=== PATIENT | male | born 1990 | race Caucasian/White ===

== ENCOUNTER 2017-06-21 11:16 | Emergency (ER) | payer SELFPAY ==
[2017-06-21 11:30] VITALS: BP 147/97
[2017-06-21] MEDS ORDERED: Tetracaine 0.5% OPTH.SOL 4 ML* 1 DROP BTL LEFT EYE ONE (11:33)
[2017-06-21] MEDS ORDERED: Fluorescein Sodium TOPICAL* 1 MG TEST OPHTHALMIC ONE (11:34)
--- NOTE | 2017-06-21 12:03 | UC ---
Eye Complaint HPI - HPI Summary HPI Summary: 26 yo male with fb sensation left eye x 1 hour ? sawdust hurts when he blinks - History of Current Complaint Chief Complaint: UCEye Stated Complaint: FB IN EYE Time Seen by Provider: 06/21/17 11:33 Hx Obtained From: Patient Onset/Duration: Sudden Onset Timing: Constant Severity Initially: Moderate Severity Currently: Moderate Pain Intensity: 7 Pain Scale Used: 0-10 Numeric Location of Injury: Eye Lid (upper) - ? Character: Foreign Body Sensation Aggravating Factor(s): Blinking Alleviating Factor(s): Nothing Associated Signs And Symptoms: Positive: Photophobia, Drainage (Clear) - Allergies/Home Medications Allergies/Adverse Reactions: Allergies Allergy/AdvReac Type Severity Reaction Status Date / Time No Known Allergies Allergy Verified 10/31/14 11:16 Home Medications: Home Medications NK [No Home Medications Reported] 06/21/17 [History Confirmed 06/21/17] PMH/Surg Hx/FS Hx/Imm Hx Previously Healthy: Yes - Surgical History Surgical History: None - Family History Known Family History: Positive: Unknown - HE IS ADOPTED - Social History Alcohol Use: Occasionally Alcohol Amount: couple beers a night Substance Use Type: None Smoking Status (MU): Heavy Every Day Tobacco Smoker Type: Cigarettes Amount Used/How Often: 1/2 ppd - Immunization History Most Recent Tetanus Shot: does not recall Review of Systems Constitutional: Negative Skin: Negative Eyes: Eye Redness ENT: Negative Respiratory: Negative Cardiovascular: Negative Gastrointestinal: Negative Genitourinary: Negative Motor: Negative Neurovascular: Negative Musculoskeletal: Negative Neurological: Negative Psychological: Negative Is Patient Immunocompromised?: No All Other Systems Reviewed And Are Negative: Yes Physical Exam Triage Information Reviewed: Yes Appearance: Well-Appearing, No Pain Distress, Well-Nourished Vital Signs: Initial Vital Signs Temp 98.8 F 06/21/17 11:22 Pulse 91 06/21/17 11:22 Resp 18 06/21/17 11:22 BP 147/97 06/21/17 11:22 Pulse Ox 100 06/21/17 11:22 Eyes: Positive: Conjunctiva Inflamed, Other: - no FB noted with lid eversion/ neg fluorescein staining defect, EOMI/PERRL ENT: Positive: Hearing grossly normal. Negative: Nasal congestion, Nasal drainage, Tonsillar exudate, Trismus, Muffled/hoarse voice Neck: Positive: Supple, Nontender, No Lymphadenopathy Respiratory: Positive: Lungs clear, Normal breath sounds, No respiratory distress, No accessory muscle use Cardiovascular: Positive: RRR, No Murmur Musculoskeletal: Positive: ROM Intact, No Edema Neurological: Positive: Alert Psychological Exam: Normal Skin Exam: Normal Re-Evaluation - Re-Evaluation First Eval Re-Evaluation Time: 12:35 Change: Improved - much better/still mildly irritated Eye Complaint Course/Dx - Differential Dx/Diagnosis Provider Diagnoses: left eye discomfort of uncertain cause Discharge - Discharge Plan Condition: Stable Disposition: HOME Patient Education Materials: Eye Pain (ED) Forms: *Work Release Referrals: [facility] [Outside] - As Soon As Possible (your bp here was elevated it should be followed) Rahul Kumar MD [Medical Doctor] - 1 Day Additional Instructions: cool compresses ZADITOR eye drops (OTC) recheck today if symptoms worsen you need to see an talent management specialist tomorrow if not completely better
== END 2017-06-21 12:48 | disposition home or self-care (01) ==
LOC: UCEAST 11:16
DX: H57.12 Ocular pain, left eye (principal); F17.210 Nicotine dependence, cigarettes, uncomplicated
CPT/HCPCS: 99212; A9270-GY; G0463

== ENCOUNTER 2018-05-13 11:20 | Emergency (ER) | payer OTHER ==
[2018-05-13 12:45] VITALS: BP 129/73
--- NOTE | 2018-05-13 13:32 | UC ---
Rectal Pain HPI - HPI Summary HPI Summary: 27-year-old male presents with bright red blood per rectum. States he has been having intermittent episodes over the past year. Had another episode again this morning. Noted is small amount of bright red blood on the stool and in the toilet as well as on the toilet paper when he wiped. He has been evaluated for this in the past and told that it was related to hemorrhoids although he declined a rectal exam at that time. Denies fever, chills, dizziness or faintness, chest pain, shortness of breath, abdominal pain, nausea, vomiting, diarrhea, constipation, pain with defecation, or anal itching. States has daily bowel movements of normal color and consistency. Does not feel like he strains with defecation. - History Of Current Complaint Chief Complaint: UCGI Stated Complaint: BLOOD IN STOOL Time Seen by Provider: 05/13/18 13:02 Hx Obtained From: Patient Onset/Duration: Other - See history of present illness Severity Currently: None Pain Intensity: 0 Location Of Pain: (No Pain) Aggravating Factor(s): Bowel Movement Alleviating Factor(s): Nothing Associated Signs And Symptoms: Positive: Rectal Bleeding, Bright Red Blood w/ Stool. Negative: Black Tarry Stool, Diarrhea, Constipation, Discharge Related History: Similar Episode/Dx As - Hemorrhoid - Allergies/Home Medications Allergies/Adverse Reactions: Allergies Allergy/AdvReac Type Severity Reaction Status Date / Time No Known Allergies Allergy Verified 10/31/14 11:16 PMH/Surg Hx/FS Hx/Imm Hx - Additional Past Medical History Additional PMH: Denies significant past medical history - Surgical History Surgical History: None - Family History Known Family History: Positive: Unknown - HE IS ADOPTED - Social History Occupation: Employed Full-time Lives: With Family Alcohol Use: Rare Alcohol Amount: couple beers a night Substance Use Type: None Smoking Status (MU): Former Smoker Type: Cigarettes Amount Used/How Often: 1/2 ppd - Immunization History Most Recent Tetanus Shot: does not recall Review of Systems Constitutional: Negative Skin: Negative Respiratory: Negative Cardiovascular: Negative Gastrointestinal: Negative Is Patient Immunocompromised?: No All Other Systems Reviewed And Are Negative: Yes Physical Exam Triage Information Reviewed: Yes Appearance: Well-Appearing, No Pain Distress, Well-Nourished Vital Signs: Initial Vital Signs Temp 97.3 F 09/17/18 12:40 Pulse 91 05/13/18 12:40 Resp 17 05/13/18 12:40 BP 129/73 05/13/18 12:40 Pulse Ox 99 05/13/18 12:40 Respiratory: Positive: Lungs clear, Normal breath sounds, No respiratory distress Cardiovascular: Positive: RRR, No Murmur, Pulses Normal, Brisk Capillary Refill Abdomen Description: Positive: Nontender, No Organomegaly, Soft. Negative: Distended, Guarding Bowel Sounds: Positive: Present Male Genital Exam: Positive: Other - Digital rectal exam revealed small internal hemorrhoid. No stool or blood noted in the rectal vault. Neurological: Positive: Alert Skin Exam: Normal Rectal Pain Course/Dx - Course Course Of Treatment: 27 year old male with intermittent episodes of painless bright red blood per rectum for past year. Most recent episode today. VSS. Exam unremarkable except for a small internal hemorrhoid noted on rectal exam. Recommend high fiber diet, push fluids, and OTC hemorrhoidal cream. He is to establish with a PCP and follow up should symptoms persist. - Differential Dx/Diagnosis Differential Diagnosis/HQI/PQRI: Hemorrhoid(s), Rectal Fissure Provider Diagnoses: internal hemorrhoid Discharge - Sign-Out/Discharge Documenting (check all that apply): Patient Departure All imaging exams completed and their final reports reviewed: No Studies - Discharge Plan Condition: Stable Disposition: HOME Patient Education Materials: Hemorrhoids (ED) Referrals: No Primary Care Phys,NOPCP [Primary Care Provider] - [facility] [Outside] - As Soon As Possible (Call if you need assistance with establishing with a primary care provider.) Additional Instructions: You were noted to have a small internal hemorrhoid on exam. This is likely the cause of your bleeding. Using [id number]-[id number] hemorrhoid ointment such as Preparation H according to directions. Eat foods high in fiber or use an ozuc-xks-[id number] fiber supplement such as Metamucil or Citrucel and be sure to drink plenty of fluids in order to keep your stool soft. I recommend establishing with a primary care provider. I have given you the number for the [facility] Referral service if you need assistance with establishing care. This will be very important especially if your symptoms persist as you may need further evaluation. Seek immediate medical attention in the emergency room if you have severe abdominal pain, pain with bowel movements, worsening bleeding, dark black tarry stools, or any worsening of symptoms. - Billing Disposition and Condition Condition: STABLE Disposition: Home
== END 2018-05-13 13:40 | disposition home or self-care (01) ==
LOC: UCCORT 11:20
DX: K64.8 Other hemorrhoids (principal); Z87.891 Personal history of nicotine dependence
CPT/HCPCS: 99211; G0463

== ENCOUNTER 2018-09-16 16:20 | Emergency (ER) | payer OTHER ==
[2018-09-16 16:28] VITALS: BP 145/86
--- NOTE | 2018-09-16 16:46 | UC ---
Back Pain HPI - HPI Summary HPI Summary: Pt presents to urgent patient presents to urgent care with significant other. Patient states since 10:30 this morning he's had frequent episodes of right sided flank pain. Patient states pain lasts 5-10 seconds but has progressively become more intense. Patient states when the pain happens he is unable to get comfortable. No nausea vomiting. Patient denies any dysuria or hematuria. Patient without pain in his rectum testicles. Patient states he is not taking anything for pain is never had anything like this before. Patient is any paresthesias. Patient states does not feel like a muscle strain. Patient denies any trauma or new injury. Patient medications reviewed this visit. Patient does smoke marijuana earlier today but that did not help the pain either patient here because of increased frequency as well as intensity. No personal history of kidney stones. Patient does not know family history - History of Current Complaint Chief Complaint: UCBackPain Stated Complaint: BACK PAIN Time Seen by Provider: 09/16/18 16:31 Hx Obtained From: Patient, Family/Engineering Test Specialist Severity Initially: Moderate Severity Currently: Moderate Pain Intensity: 7 Pain Scale Used: 0-10 Numeric Back Pain: Is Discrete @ - right paraspinal prox lumbar Character: Sharp Aggravating Factor(s): Nothing Alleviating Factor(s): Nothing Associated Signs And Symptoms: Positive: Flank Pain. Negative: Abdominal Pain - Allergies/Home Medications Allergies/Adverse Reactions: Allergies Allergy/AdvReac Type Severity Reaction Status Date / Time No Known Allergies Allergy Verified 09/16/18 16:28 PMH/Surg Hx/FS Hx/Imm Hx Previously Healthy: Yes - Surgical History Surgical History: None Surgery Procedure, Year, and Place: denies - Family History Known Family History: Positive: Unknown - HE IS ADOPTED - Social History Occupation: Employed Full-time - construction Lives: With Family Alcohol Use: Occasionally Alcohol Amount: couple beers a night Substance Use Type: None Smoking Status (MU): Former Smoker Type: Cigarettes Amount Used/How Often: 1/2 ppd Have You Smoked in the Last Year: Yes - vape - Immunization History Most Recent Tetanus Shot: does not recall Review of Systems All Other Systems Reviewed And Are Negative: Yes Constitutional: Positive: Negative Skin: Positive: Negative Eyes: Positive: Negative ENT: Positive: Negative Respiratory: Positive: Negative Cardiovascular: Positive: Negative Gastrointestinal: Positive: Negative Genitourinary: Positive: Negative Motor: Positive: Other - right back Is Patient Immunocompromised?: No Physical Exam - Summary Physical Exam Summary: Vital Signs Reviewed: Yes A+Ox3, intermittent episode of discomfort Eyes: Conjunctiva Clear, MARIANNE. EOM intact and full ENT: Hearing grossly normal TM x 2 clear, mmoist, uvula midline, no exudate, no erythema Neck: Positive: Supple Respiratory: Positive: No respiratory distress, No accessory muscle use + CTA throughout no w/r Cardiovascular: RRR nl s1, s2 no m/r CBT <2 sec abd soft + BS nt/nd no guarding, no distension no CVA Musculoskeletal Exam: No spinous process pain. No pain with palpaption of spinous process. Unable to recreate pain. MCKOY x 4 without difficulty Strength Intact, ROM Intact Neurological: Positive: Alert, + sensation throughout Psychological: Positive: Normal Response To Family Skin: Positive: no rash, no ecchymosis Triage Information Reviewed: Yes Vital Signs: Initial Vital Signs Temp 98.6 F 09/16/18 16:24 Pulse 90 09/16/18 16:24 Resp 18 09/16/18 16:24 BP 145/86 09/16/18 16:24 Pulse Ox 99 09/16/18 16:24 Diagnostics - Radiology No standard instances Radiology Interpretation Completed By: Radiologist - Patient Name: LAKHWINDER NORTON Medical Record#: [id number] Ordering Physician: Lindsay Burgess MD Acct.#: [id number] : 1990 Age: 28 Sex: M Location: [place] Exam Date: 09/16/18 1700 ADM Status: [facility] Order Information: CT ABD/PEL W/ O Accession Number: [id number] CPT: 62402 CLINICAL HISTORY: right flank pain COMPARISON: None TECHNIQUE: Multiple contiguous axial CT scans were obtained of the abdomen and pelvis, without intravenous contrast enhancement. Coronal and sagittal multiplanar reformations are submitted for review. Oral contrast was not administered. FINDINGS: Evaluation is limited due to the lack of intravenous contrast. This limits evaluation of the solid organs and vasculature. LUNG BASES: The lung bases are clear. LIVER: The liver is normal in shape, size, contour, and attenuation. BILE DUCTS: There is no intrahepatic or extrahepatic biliary dilatation. GALLBLADDER: The gallbladder is normal, without pericholecystic inflammatory change. PANCREAS: The pancreas is normal, without mass or ductal dilatation. SPLEEN: Normal in size and appearance. UPPER GI TRACT: Evaluation of the gastrointestinal tract is limited by incomplete gastric distention. The upper GI tract is unremarkable. SMALL BOWEL AND MESENTERY: The small bowel is normal in contour, course, and caliber. There is no obstruction or dilatation. COLON: The colon is normal in contour, course, caliber. There is no pericolonic inflammatory change. There is a tubular, vermiform, hollow viscus that is blind ending, and originates from the cecum, consistent with a normal appendix. There is no periappendiceal inflammatory change. This is best seen on series 603.2 on axial images 142 through 163. ADRENALS: Normal bilaterally. KIDNEYS: The kidneys are normal in shape, size, contour, and axis. There is no hydronephrosis or nephrolithiasis. BLADDER: The bladder is smooth in contour. PELVIC ORGANS: The prostate gland is normal. The seminal vesicles are symmetric. AORTA: The aorta is normal. IVC: Unremarkable LYMPH NODES: There is no lymphadenopathy by size criteria. ABDOMINAL WALL: There is no evidence for abdominal wall hernia. BONES AND SOFT TISSUES: Unremarkable OTHER: None IMPRESSION: NO HYDRONEPHROSIS OR NEPHROLITHIASIS. NORMAL APPENDIX This report is only to be considered final once signed by the Provider(s) as displayed in the "<Electronically Signed by >" field (s). Absence of a signature indicates the report is in a draft status and still needs to be finalized. In the event this document was created by someone other than the signing Provider, the individual initiating the document will be listed in the "Entered by:" or "Dictated by:" adkins. 1 of 2 Re-Evaluation - Re-Evaluation First Eval Comment: reviewed CT with pt. motrin / APAP. heat. stretch. pt to call PCP for f/u or ED if worse. States agreement with plan. work note Back Pain Course/Dx - Course Course Of Treatment: Patient presents to urgent care with intermittent episodes of right back pain since 10:30 this morning. Patient states there is nothing that seemed to trigger them. Pain is increasing in intensity as well as duration although each episode was less than 10 seconds. Patient is a nausea vomiting. Patient unable to couple during episodes. No analgesia taken. No trauma. No medications taken patient's urine was normal. Discussed with patient differential including renal colic, muscle spasm, gallbladder. d/w pt noncontrast CT vs analgesia, heat stretch with close follow-up. After discussion will proceed with non contrast pt aware of noncontrast limitation. Will give Motrin - Differential Dx/Diagnosis Provider Diagnosis: Flank pain, Back pain Discharge - Sign-Out/Discharge Documenting (check all that apply): Patient Departure All imaging exams completed and their final reports reviewed: Yes - Discharge Plan Condition: Stable Disposition: HOME Patient Education Materials: Flank Pain (ED), Back Pain (ED) Forms: *Work Release Referrals: No Primary Care Phys,NOPCP [Primary Care Provider] - Additional Instructions: As discussed with you jarodight, your CT scan does not show the cause of your pain. There is no evidence or kidney stones and your appendix appears normal. It is very important you monitor your symptoms closely - if you develop increased or uncontrolled pain, vomiting, fevers, rash or ANY other concerns it is recommended you go to the emergency department for further evaluation and treatment It is recommended you alternate ibuprofen (Advil, Motrin) and tylenol every 3 hours for pain. Take with food. do NOt take for more than 4-5 days Apply moist heat to the area Contact your doctor or go to the ED for follow-up. - Billing Disposition and Condition Condition: STABLE Disposition: Home
[2018-09-16] MEDS ORDERED: Ibuprofen TAB* 600 MG PO ONE (17:01)
== END 2018-09-16 17:45 | disposition home or self-care (01) ==
LOC: UCEAST 16:20
DX: M54.5 Low back pain (principal); Z87.891 Personal history of nicotine dependence
CPT/HCPCS: 74176; 81003; 99212; A9270-GY; G0463

== ENCOUNTER 2019-05-15 20:12 | Emergency (ER) | payer OTHER ==
[2019-05-15 21:06] VITALS: BP 130/87
--- NOTE | 2019-05-15 21:13 | UC ---
Hand/Wrist HPI - HPI Summary HPI Summary: 28-year-old male who was using a shovel to do some work on his driveway when he jammed the shovel into concrete which causes pain in his left wrist. This happened 2 days ago. - History Of Current Complaint Chief Complaint: UCUpperExtremity Stated Complaint: WRIST INJURY Time Seen by Provider: 05/15/19 20:20 Hx Obtained From: Patient ?: No Onset/Duration: Sudden Onset Severity Initially: Mild Severity Currently: Mild Pain Intensity: 2 Character Of Pain: Dull, Aching Aggravating Factor(s): Movement Alleviating Factor(s): Nothing Associated Signs And Symptoms: Positive: Swelling - Allergies/Home Medications Allergies/Adverse Reactions: Allergies Allergy/AdvReac Type Severity Reaction Status Date / Time No Known Allergies Allergy Verified 05/15/19 21:07 PMH/Surg Hx/FS Hx/Imm Hx Previously Healthy: Yes - Surgical History Surgical History: None Surgery Procedure, Year, and Place: denies - Family History Known Family History: Positive: Unknown - HE IS ADOPTED - Social History Alcohol Use: Occasionally Alcohol Amount: couple beers a month Substance Use Type: Marijuana Substance Use Comment - Amount & Last Used: daily Smoking Status (MU): Former Smoker Type: eCigarettes Amount Used/How Often: 1/2 ppd Have You Smoked in the Last Year: Yes - vape - Immunization History Most Recent Tetanus Shot: does not recall Review of Systems All Other Systems Reviewed And Are Negative: Yes Musculoskeletal: Positive: Other: - Mild swelling to the left wrist. Is Patient Immunocompromised?: No Physical Exam Triage Information Reviewed: Yes Appearance: Well-Appearing, No Pain Distress, Well-Nourished Vital Signs: Initial Vital Signs Temp 98.0 F 05/15/19 21:02 Pulse 93 05/15/19 21:02 Resp 16 05/15/19 21:02 BP 130/87 05/15/19 21:02 Pulse Ox 100 05/15/19 21:02 Vital Signs Reviewed: Yes Musculoskeletal: Positive: Strength Intact, ROM Intact - Good finger strength with flexion extension against resistance, good peripheral pulses neuro sensation capillary refill, scaphoid is nontender. Patient has mild swelling to the left wrist area. No deformity is noted., Other: - Good elbow stability. Neurological: Positive: Alert, Muscle Tone Normal Psychological Exam: Normal Skin: Positive: Other - Mild swelling over the left wrist. Hand/Wrist Course/Dx - Course Course Of Treatment: Left wrist x-ray: negative as read by myself A cockup wrist splint is applied. No work until Sunday. Patient's follow-up with the orthopedist if no improvement by Sunday. - Differential Dx/Diagnosis Provider Diagnosis: Left wrist sprain Discharge ED - Sign-Out/Discharge Documenting (check all that apply): Patient Departure All imaging exams completed and their final reports reviewed: No - Discharge Plan Condition: Good Disposition: HOME Patient Education Materials: Wrist Sprain (ED) Forms: *Work Release Referrals: No Primary Care Phys,NOPCP [Primary Care Provider] - Tiffany Dent MD [Medical Doctor] - Additional Instructions: Elevate as much as possible, apply ice to the sore area intermittently throughout the next day or 2. Wear the wrist splint as needed for comfort. Definite follow-up with the orthopedist on Sunday if continued pain. - Billing Disposition and Condition Condition: GOOD Disposition: Home - Attestation Statements Provider Attestation: I was available for consult. This patient was seen by the MATTHEW. The patient was not presented to, seen by, or examined by me. -Xochilt
--- NOTE | 2019-05-16 08:48 | UC ---
- Progress Note Progress Note: Patient Name: LAKHWINDER NORTON Medical Record#: [id number] Ordering Physician: Jacquelyn Dan NP Acct.#: [id number] : 1990 Age: 28 Sex: M Location: [facility] Exam Date: 05/15/192109 ADM Status: [facility] Order Information: WRIST LEFT 3+ VWS Accession Number: [id number] CPT: 98808 INDICATION: Left wrist injury. TECHNIQUE: 4 views of the left wrist were obtained. FINDINGS: The bones are in normal alignment. No fracture is seen. Joint spaces appear maintained. IMPRESSION: NO EVIDENCE FOR FRACTURE. IF THE PATIENT'S SYMPTOMS PERSIST RECOMMEND FOLLOW-UP IMAGING. R0 Preliminary Imaging Read R0 <Electronically signed by Mohan Rashid MD in [place]> 05/16/19731 Dictated By: Mohan Rashid MD Dictated Date/Time: 05/16/19730 Transcribed Date/Time: 05/16/19730 Copy to: CC:Jacquelyn Dan NP; Lindsay Burgess MD; No Primary Care Phys,NOPCP Imaging - [facility] Imaging - [facility] Imaging - [facility] [address] [address] ph ([phone]) ph ([phone]) ph ([phone]) This report is only to be considered final once signed by the Provider(s) as displayed in the "<Electronically Signed by >" field (s). Absence of a signature indicates the report is in a draft status and still needs to be finalized. In the event this document was created by someone other than the signing Provider, the individual initiating the document will be listed in the "Entered by:" or "Dictated by:" adkins. 1 of 1 Course/Dx - Diagnoses Provider Diagnoses: Left wrist sprain Discharge ED - Sign-Out/Discharge Documenting (check all that apply): Post-Discharge Follow Up All imaging exams completed and their final reports reviewed: Yes - Discharge Plan Condition: Good Disposition: HOME Patient Education Materials: Wrist Sprain (ED) Forms: *Work Release Referrals: Tiffany Dent MD [Medical Doctor] - No Primary Care Phys,NOPCP [Primary Care Provider] - Additional Instructions: Elevate as much as possible, apply ice to the sore area intermittently throughout the next day or 2. Wear the wrist splint as needed for comfort. Definite follow-up with the orthopedist on Sunday if continued pain. - Billing Disposition and Condition Condition: GOOD Disposition: Home
== END 2019-05-15 21:47 | disposition home or self-care (01) ==
LOC: UCEAST 20:12
DX: S63.502A Unspecified sprain of left wrist, initial encounter (principal); X50.0XXA Overexertion from strenuous movement or load, initial encounter; Y93.H1 Activity, digging, shoveling and raking; Y92.017 Garden or yard in single-family (private) house as the place of occurrence of the external cause; Y99.8 Other external cause status; Z87.891 Personal history of nicotine dependence
CPT/HCPCS: 99212; G0463

== ENCOUNTER 2019-09-01 07:21 | Emergency (ER) | payer OTHER ==
--- NOTE | 2019-09-01 07:43 | UC ---
Abdominal Pain Male HPI - HPI Summary HPI Summary: The patient is a 29-year-old male that has had a four-day history of diarrhea. He states he has over 20 episodes of diarrhea day. He has been tolerating liquids. Any attempts to eat solids result in vomiting. He has had about one episode of vomiting a day. He denies any fever or chills. He denies any abdominal pain. He is starting to feel little dizzy and lightheaded when he stands. He has had no blood in his diarrhea. He denies any recent antibiotic use. He denies any recent travel or camping. No one else at home is ill with similar symptoms. He denies any myalgias or headache. - History of Current Complaint Chief Complaint: UCGeneralIllness Stated Complaint: VOMITING Time Seen by Provider: 09/01/19 07:42 Hx Obtained From: Patient Onset/Duration: Gradual Onset, Lasting Days Timing: Constant Severity Initially: Moderate Severity Currently: Moderate Pain Intensity: 1 Pain Scale Used: 0-10 Numeric Location: Diffuse Character: Cramping Aggravating Factor(s): Food Alleviating Factor(s): Nothing Associated Signs And Symptoms: Positive: Dizzy, Vomiting - only if he attempts to eat, Diarrhea - ++++. Negative: Diaphoresis, Fever, Cough, Chest Pain, Back Pain, Constipation, Blood in Stool, Urinary Symptoms, Decreased Appetite, Nausea - Allergies/Home Medications Allergies/Adverse Reactions: Allergies Allergy/AdvReac Type Severity Reaction Status Date / Time No Known Allergies Allergy Verified 05/15/19 21:07 PMH/Surg Hx/FS Hx/Imm Hx Previously Healthy: Yes - Surgical History Surgical History: None Surgery Procedure, Year, and Place: denies - Family History Known Family History: Positive: Unknown - HE IS ADOPTED - Social History Alcohol Use: Rare Alcohol Amount: couple beers a month Substance Use Type: Marijuana Substance Use Comment - Amount & Last Used: daily Smoking Status (MU): Former Smoker Type: eCigarettes Amount Used/How Often: 1/2 ppd Have You Smoked in the Last Year: Yes - vape - Immunization History Most Recent Tetanus Shot: does not recall Review of Systems All Other Systems Reviewed And Are Negative: Yes Constitutional: Positive: Negative Skin: Positive: Negative Eyes: Positive: Negative ENT: Positive: Negative, Dental Pain Respiratory: Positive: Negative Cardiovascular: Positive: Negative Gastrointestinal: Positive: Vomiting, Diarrhea Genitourinary: Positive: Negative Motor: Positive: Negative Neurovascular: Positive: Negative Musculoskeletal: Positive: Negative Neurological: Positive: Negative Psychological: Positive: Negative Physical Exam Triage Information Reviewed: Yes Appearance: Well-Appearing, No Pain Distress, Well-Nourished Vital Signs: Initial Vital Signs Temp 97.8 F 09/01/19 07:32 Pulse 102 09/01/19 07:32 Resp 18 09/01/19 07:32 BP 135/87 09/01/19 07:32 Pulse Ox 97 09/01/19 07:32 Vital Signs Reviewed: Yes Eyes: Positive: Conjunctiva Clear ENT: Positive: Hearing grossly normal, Uvula midline, Other - dry lips /moist intraoral mm. Negative: Nasal congestion, Nasal drainage, Tonsillar swelling, Tonsillar exudate, Trismus, Muffled voice, Hoarse voice Neck: Positive: Supple, Nontender Respiratory: Positive: Lungs clear, Normal breath sounds, No respiratory distress Cardiovascular: Positive: RRR, No Murmur Abdomen Description: Positive: Nontender, No Organomegaly, Soft. Negative: CVA Tenderness (R), CVA Tenderness (L) Bowel Sounds: Positive: Present, Hyperactive Musculoskeletal: Positive: ROM Intact, No Edema Neurological: Positive: Alert Psychological Exam: Normal Skin Exam: Normal Re-Evaluation - Re-Evaluation First Eval Re-Evaluation Time: 09:05 Change: Improved Comment: improved after one liter of fluids/no dizziness/ambulating without difficulty. No longer tachycardic Abd Pain Male Course/Dx - Differential Dx/Clinical Impression Provider Diagnosis: Acute diarrhea Discharge ED - Sign-Out/Discharge Documenting (check all that apply): Patient Departure All imaging exams completed and their final reports reviewed: No Studies - Discharge Plan Condition: Stable Disposition: HOME Prescriptions: Promethazine 25 mg TAB [Phenergan 25 mg TAB] 25 mg PO Q6H PRN #12 tab PRN Reason: Nausea Patient Education Materials: Acute Diarrhea (ED), Nutrition Tips for Relief of Diarrhea (ED) Referrals: [facility] [place] [facility] [Outside] Additional Instructions: bring in stool for studies recheck for worsening symptoms - Billing Disposition and Condition Condition: STABLE Disposition: Home
[2019-09-01] MEDS ORDERED: NS 0.9% 1000 ML** 1,000 ML BOLUS ONE (07:50)
[2019-09-01 09:06] VITALS: BP 133/77
== END 2019-09-01 09:35 | disposition home or self-care (01) ==
LOC: UCEAST 07:21
DX: R19.7 Diarrhea, unspecified (principal); R42 Dizziness and giddiness; R11.10 Vomiting, unspecified; Z87.891 Personal history of nicotine dependence
CPT/HCPCS: 87045; 87046; 87899; 96360; 99212; G0463